=== PATIENT | female | born 1985 | race Caucasian/White ===

== ENCOUNTER 2017-06-07 12:50 | Outpatient (CLI) | payer OTHER ==
[~2017-06-07] VITALS: Ht 144.8 cm; Wt 111.2 kg
[2017-06-07 12:59] VITALS: BP 119/56
== END 2017-06-07 14:20 | disposition home or self-care (01) ==
LOC: LDOP 12:50
PROVIDERS: ATTEND Obstetrics & Gynecology
DX: O99.213 Obesity complicating pregnancy, third trimester (principal); O62.9 Abnormality of forces of labor, unspecified; Z3A.36 36 weeks gestation of pregnancy
CPT/HCPCS: 59025; 99201; G0463

== ENCOUNTER 2017-06-27 13:16 | Inpatient (IN) | payer OTHER ==
[~2017-06-27] VITALS: Ht 144.8 cm; Wt 114.1 kg
[2017-06-27] MEDS ORDERED: OXYTOCIN 30U/ 0.9% NaCL 500ML 500 ML IV ONE (20:24)
[2017-06-27] MEDS ORDERED: OXYTOCIN 30U/ 0.9% NaCL 500ML 500 ML IV PRN (20:24)
[2017-06-27] MEDS ORDERED: ONDANSETRON 2MG/ML, 2ML IVPush PRN (20:30)
[2017-06-27] MEDS ORDERED: FENTANYL PF 100 MCG/2ML IV PRN (20:30)
[2017-06-27] MEDS ORDERED: MISOPROSTOL 25 MCG TABLET VG PRN (20:30)
[2017-06-27] MEDS ORDERED: CALCIUM CARBONATE 500 MG TAB.CHEW PO PRN (20:30)
[2017-06-27] MEDS ORDERED: SODIUM CHLORIDE FLUSH 10ML SYR IVF PRN (20:30)
[2017-06-27 20:53] VITALS: BP 120/61
[2017-06-27] MEDS ORDERED: MISOPROSTOL 25 MCG TABLET ONE (21:06)
[2017-06-27 21:10] LABS: HEMATOCRIT 31.9 % (34.6-47.8); HEMOGLOBIN 10.8 g/dL (11.7-16.4); WHITE BLOOD COUNT 9.2 x10^3/uL (3.4-10)
[2017-06-27] MEDS: LACTATED RINGERS 1,000 ML IV SCH (21:16)
[2017-06-27] MEDS ORDERED: NEWBORN KIT ONE (21:26)
[2017-06-27] MEDS ORDERED: OXYTOCIN 30U/ 0.9% NaCL 500ML 500 ML ONE (21:35)
[2017-06-27] MEDS: BUTALB/APAP/CAFFEINE 50MG/325MG/40MG PO PRN (22:11)
[2017-06-28] MEDS ORDERED: MISOPROSTOL 25 MCG TABLET ONE (01:02)
[2017-06-28] MEDS: BUTALB/APAP/CAFFEINE 50MG/325MG/40MG PO PRN (03:14)
[2017-06-28] MEDS: LACTATED RINGERS 1,000 ML IV SCH ×5 (04:24→20:02)
[2017-06-28] MEDS: D5%-LACTATED RINGERS 1,000 ML IV SCH ×4 (04:24→20:24)
[2017-06-28] MEDS ORDERED: FENTANYL PF 100 MCG/2ML ONE ×3 (06:08→10:01)
[2017-06-28] MEDS: FENTANYL PF 100 MCG/2ML IVPush PRN ×2 (06:13→07:48)
[2017-06-28] MEDS ORDERED: SUMA100T3 PO (08:29)
[2017-06-28] MEDS ORDERED: METF-649 PO ×2 (08:31→08:50)
[2017-06-28] MEDS ORDERED: BUTA1CAP30 PO (08:32)
[2017-06-28] MEDS ORDERED: PREN1TAB60 PO (08:50)
[2017-06-28] MEDS ORDERED: FENTANYL/BUPIV./NS/PF 250 ML EPIDCONT SCH (09:59)
[2017-06-28] MEDS ORDERED: EPHEDRINE 50 MG/ML, 1ML IVPush PRN (10:00)
[2017-06-28] MEDS ORDERED: BUPIVACAINE/PF 0.25% ONE (10:00)
[2017-06-28] MEDS ORDERED: LACTATED RINGERS 1,000 ML IVBOLUS PRN (10:00)
[2017-06-28] MEDS ORDERED: FENTANYL/BUPIV./NS/PF 250 ML EPIDCONT ONE (10:00)
[2017-06-28] MEDS ORDERED: NALOXONE 0.4 MG/ML, 1ML IVPush PRN (10:00)
[2017-06-28] MEDS ORDERED: BUPIVACAINE 0.25% ONE (10:01)
[2017-06-28] MEDS ORDERED: LACTATED RINGERS 1,000 ML INTUTE PRN (16:30)
[2017-06-28] MEDS ORDERED: DIPHENHYDRAMINE/ZINC CRM 2%, 30GM TP PRN (18:30)
[2017-06-29] MEDS ORDERED: MISOPROSTOL 200 MCG TABLET ONE (00:16)
[2017-06-29] MEDS ORDERED: OXYTOCIN 30U/ 0.9% NaCL 500ML 500 ML ONE (00:32)
[2017-06-29] MEDS: OXYTOCIN 30U/ 0.9% NaCL 500ML 500 ML IV SCH ×9 (00:34→20:34)
[2017-06-29] MEDS: CEFAZOLIN PMX 2GM/50ML 50 ML IV SCH ×3 (00:52→17:26)
[2017-06-29] MEDS ORDERED: ONDANSETRON 2MG/ML, 2ML IV PRN (01:00)
[2017-06-29] MEDS ORDERED: METHYLERGONOVINE 0.2 MG/ML IM PRN (01:00)
[2017-06-29] MEDS ORDERED: CALCIUM CARBONATE 500 MG TAB.CHEW PO PRN (01:00)
[2017-06-29] MEDS ORDERED: MISOPROSTOL 200 MCG TABLET PR PRN (01:00)
[2017-06-29] MEDS ORDERED: IBUPROFEN 600 MG TABLET ONE (01:11)
[2017-06-29] MEDS ORDERED: OXYcodone/APAP 5/325MG TABLET ONE (01:12)
[2017-06-29] MEDS: IBUPROFEN 600 MG TABLET PO PRN ×3 (01:13→17:27)
[2017-06-29] MEDS: OXYcodone/APAP 5/325MG TABLET PO PRN ×5 (01:14→22:46)
[2017-06-29 03:15] VITALS: BP 127/97
[2017-06-29 07:24] VITALS: BP 93/54
[2017-06-29] MEDS ORDERED: PRENATAL VIT/IRON/FA 1 EACH TABLET ONE (07:29)
[2017-06-29] MEDS: DOCUSATE 100 MG CAPSULE PO PRN ×2 (07:31→22:43)
[2017-06-29] MEDS: metFORMIN XR 500 MG TAB.ER.24H PO SCH (07:31)
[2017-06-29] MEDS: PRENATAL VIT/IRON/FA 1 EACH TABLET PO SCH (07:31)
[2017-06-29 08:59] LABS: HEMATOCRIT 24.8 % (34.6-47.8); HEMOGLOBIN 8.4 g/dL (11.7-16.4); WHITE BLOOD COUNT 13.9 x10^3/uL (3.4-10)
[2017-06-29 19:40] VITALS: BP 120/70
[2017-06-30] MEDS: CEFAZOLIN PMX 2GM/50ML 50 ML IV SCH (01:00)
[2017-06-30] MEDS: IBUPROFEN 600 MG TABLET PO PRN (05:40)
[2017-06-30] MEDS: OXYTOCIN 30U/ 0.9% NaCL 500ML 500 ML IV SCH (06:34)
[2017-06-30 08:57] VITALS: BP 132/66
[2017-06-30] MEDS: metFORMIN XR 500 MG TAB.ER.24H PO SCH (09:19)
[2017-06-30] MEDS: PRENATAL VIT/IRON/FA 1 EACH TABLET PO SCH (09:19)
[2017-06-30] MEDS: DOCUSATE 100 MG CAPSULE PO PRN (09:19)
[2017-06-30] MEDS ORDERED: OXYC-302 PO (10:31)
[2017-06-30] MEDS ORDERED: IBUP-1222 PO (10:31)
== END 2017-06-30 12:25 | disposition home or self-care (01) | DRG 775 ==
LOC: LDIP 20:44 → 2NW 06-29 02:52
PROVIDERS: ADMIT Obstetrics & Gynecology; ATTEND Obstetrics & Gynecology
PROC: 10E0XZZ Delivery of Products of Conception, External Approach (ICD-10-PCS; principal; 2017-06-29)
DX: O69.81X0 Labor and delivery complicated by cord around neck, without compression, not applicable or unspecified (principal); E66.01 Morbid (severe) obesity due to excess calories; Z37.0 Single live birth; O99.214 Obesity complicating childbirth; E28.2 Polycystic ovarian syndrome; O76 Abnormality in fetal heart rate and rhythm complicating labor and delivery; Z3A.39 39 weeks gestation of pregnancy
CPT/HCPCS: 36415; 85025; 86850; 86900; J0690; J3010; J3490; J2590; J7120; J7121